=== PATIENT | male | born 1990 | race Caucasian/White ===

== ENCOUNTER 2017-04-09 22:31 | Emergency (ER) | payer OTHER ==
[~2017-04-09] VITALS: Ht 175.3 cm; Wt 124.0 kg
[~2017-04-09 22:31] MED LIST: DIAZ5 PO; LISI-357 PO; MOBI15TA PO; ULTR50TA PO
[2017-04-09 22:43] VITALS: BP 138/89; PULSE 100; RESP 18; TEMP 98.2; O2SAT 100
[2017-04-09] MEDS ORDERED: LISI-515 PO (23:43)
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
[2017-04-10] MEDS ORDERED: ROBA750T PO (01:07)
[2017-04-10] MEDS ORDERED: LISI-515 PO (01:28)
== END 2017-04-10 01:51 | disposition home or self-care (01) ==
LOC: PHEFT 22:31
DX: S16.1XXA Strain of muscle, fascia and tendon at neck level, initial encounter (principal); S39.012A Strain of muscle, fascia and tendon of lower back, initial encounter; M25.511 Pain in right shoulder; M25.521 Pain in right elbow; F17.200 Nicotine dependence, unspecified, uncomplicated; I10 Essential (primary) hypertension; V49.40XA Driver injured in collision with unspecified motor vehicles in traffic accident, initial encounter
CPT/HCPCS: 70450; 72125; 72131; 73030; 73080; 99285